=== PATIENT | male | born 1940 | race Caucasian/White ===

== ENCOUNTER 2018-01-22 07:45 | Day surgery (SDC) | payer MEDICARE, BC ==
[2018-01-17 16:25] VITALS: BMI 24.1
[~2018-01-22 07:45] MED LIST: DEXAMETHASONE SOD PHOSPHATE 10 MG/ML 1 ML VIAL IV ONE; HEPARIN SODIUM,PORCINE 5,000 UNIT/ML 1 ML VIAL SQ ONE; ONDANSETRON 4 MG/2 ML VIAL IVP ONE; ceFAZolin IN SWFI 2 GM/20 ML SYRINGE IVP ONE
[2018-01-22 08:27] VITALS: TEMP 97.8
[2018-01-22] MEDS: LACTATED RINGERS 1,000 ML IV SCH ×2 (08:36→08:50)
[2018-01-22] MEDS ORDERED: LIDOCAINE 1% 20 ML VIAL (10MG/ML) FOR IV START INTRADERMA ONE ×2 (08:36→08:50)
[2018-01-22 08:40] LABS: Glucose,Whole Blood 118 mg/dL (75-99)
--- NOTE | 2018-01-22 09:14 | P.GSHP ---
History of Present Illness H&P Date: 01/22/18 Chief Complaint: Right inguinal hernia This is a 77-year-old male who presents today for laparoscopic robotic-assisted repair of right inguinal hernia. Patient points of pain in the mass in his right groin. He was seen in the office and found have a reducible right inguinal hernia. 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, cataracts noman., surgery for sleep apnea, middle finger rt hand amputation, baby finger reattached Past Anesthesia/Blood Transfusion Reactions: No Reported Reaction Past Psychological History: No Psychological Hx Reported Smoking Status: Former smoker Past Alcohol Use History: Rare Additional Past Alcohol Use History / Comment(s): quit 1969 smoked 12 years < 1ppd switched to pipe Past Drug Use History: None Reported - Past Family History Father Family Medical History: Cancer Additional Family Medical History / Comment(s): prostate and colon cancer at age 50 Sister(s) Family Medical History: Cancer Additional Family Medical History / Comment(s): parkinsons Medications and Allergies Home Medications Medication Instructions Recorded Confirmed Type Aspirin [Adult Low Dose Aspirin EC] 81 mg PO DAILY 01/17/18 01/17/18 History Atorvastatin [Lipitor] 40 mg PO WE 01/17/18 01/22/18 History Cholecalciferol [Vitamin D3] 2,000 unit PO DAILY 01/17/18 01/17/18 History Fluticasone/Vilanterol [Breo 1 inhalation PO Q24HR PRN 01/17/18 01/22/18 History Ellipta 100-25 Mcg Inhaler] Levothyroxine Sodium 88 mcg PO DAILY 01/17/18 01/17/18 History Metoprolol Tartrate [Lopressor] 25 mg PO DAILY 01/17/18 01/17/18 History Omeprazole 20 mg PO DAILY 01/17/18 01/17/18 History Potassium Chloride [K-Tab ER] 10 meq PO DAILY 01/17/18 01/22/18 History Terazosin HCl 5 mg PO DAILY 01/17/18 01/17/18 History metFORMIN HCL [Glucophage] 500 mg PO DAILY PRN 01/17/18 01/17/18 History Allergies Allergy/AdvReac Type Severity Reaction Status Date / Time No Known Allergies Allergy Verified 01/22/18 08:42 Surgical - Exam Vital Signs Temp Pulse Resp BP Pulse Ox 97.8 F 57 L 18 133/61 98 01/22/18 08:26 01/22/18 08:26 01/22/18 08:26 01/22/18 08:26 01/22/18 08:26 - General well developed, no distress - Eyes PERRL - ENT normal pinna - Neck no masses - Respiratory normal expansion - Cardiovascular Rhythm: regular - Abdomen Abdomen: soft, non tender Results - Labs Abnormal Lab Results - Last 24 Hours (Table) 01/22/18 Range/Units 08:34 POC Glucose (mg/dL) 118 H (75-99) mg/dL Assessment and Plan Assessment: Right inguinal hernia. We'll perform laparoscopic robotic-assisted repair.
[2018-01-22] MEDS ORDERED: LIDOCAINE 1% INJ 10MG/ML (20 ML MDV) ONE (09:34)
[2018-01-22] MEDS ORDERED: MIDAZOLAM 2 MG/2 ML VIAL ONE (09:34)
[2018-01-22] MEDS ORDERED: NEOSTIGMINE 1 MG/ML 10 ML VIAL ONE (09:34)
[2018-01-22] MEDS ORDERED: GLYCOPYRROLATE 0.2 MG/ML 2 ML VIAL ONE (09:34)
[2018-01-22] MEDS ORDERED: VECURONIUM 10 MG VIAL IV ONE (09:34)
[2018-01-22] MEDS ORDERED: ePHEDrine SULFATE/0.9% NACL/PF 50 MG/5 ML SYRINGE IV ONE (09:34)
[2018-01-22] MEDS ORDERED: PROPOFOL 10 MG/ML 20 ML VIAL IV ONE (09:34)
[2018-01-22] MEDS ORDERED: fentaNYL (PF) 50 MCG/ML 2 ML AMP ONE (09:34)
[2018-01-22] MEDS ORDERED: SUCCINYLCHOLINE CHLORIDE 100 MG/5 ML SYR IV ONE (09:34)
[2018-01-22] MEDS ORDERED: BUPIVACAINE (PF) 0.25% 30 ML VIAL SQ ONE (10:10)
[2018-01-22 11:12] LABS: Glucose,Whole Blood 149 mg/dL (75-99)
--- NOTE | 2018-01-22 11:12 | P.OP ---
Date of Procedure: 01/22/18 Preoperative Diagnosis: Right inguinal hernia Postoperative Diagnosis: Right inguinal hernia Cord lipoma Procedure(s) Performed: Laparoscopic robotic-assisted repair of right inguinal hernia Excision of right cord lipoma Anesthesia: BRENDA Surgeon: Stevenson Mcwilliams Estimated Blood Loss (ml): 5 Pathology: other (Cord lipoma) Condition: stable Disposition: PACU Description of Procedure: The patient was placed on the operating table in the supine position. The patient received general anesthesia. The patient's abdomen was prepped and draped in usual sterile fashion. The skin was anesthetized 1% local Xylocaine at the incision sites. Using an 11 blade a skin incision was made at the umbilicus. The fascia was grasped with a Zachery and then the peritoneal cavity was entered with the Veress needle. Position of the Veress needle was confirmed with a positive drop test. After adequate insufflation a 5 mm trocar was placed into the peritoneal cavity. The Laparoscope was placed the peritoneal cavity. And a robotic 8 mm trocar was placed in the right lateral position and then another 8 mm robotic trochars placed in the left lateral position. The original 5 mm trocar was exchanged for a 12 mm trocar. The patient was placed in reverse Trendelenburg and then the patient was docked to the robot. Next the peritoneum over top of the hernia was incised and then using blunt and sharp dissection and electrocautery the hernia sac was dissected free from the floor of the inguinal canal. The hernia sac was completely reduced into the peritoneal cavity. The lipoma was dissected free from the cord. And then using the Pro admissions director mesh the hernia was repaired. The peritoneum was then sutured with 2-0V lock suture. The patient was then undocked the robot. The needle was withdrawn from the peritoneal cavity. The cord lipoma was brought out and sent to pathology. The umbilical trocar site was closed with 0 Ethibond suture. The skin was closed interrupted 3-0 Monocryl suture. Dermabond dressing was applied. Patient was sent to recovery in stable condition.
[2018-01-22] MEDS: MORPHINE SULFATE 4 MG/ML SYRINGE IV PRN ×3 (11:19→11:52)
[2018-01-22 12:11] VITALS: RESP 18
[2018-01-22] MEDS ORDERED: HYDROcodone/APAP 7.5-325MG 1 EACH TAB PO ONE (12:24)
[2018-01-22] MEDS ORDERED: LACTATED RINGERS 1,000 ML IV ONE ×2 (13:19→15:55)
[2018-01-22 14:01] VITALS: BP 172/77; PULSE 56
== END 2018-01-22 17:00 | disposition home or self-care (01) ==
LOC: OR 07:45
PROVIDERS: ATTEND Surgery
DX: K40.90 Unilateral inguinal hernia, without obstruction or gangrene, not specified as recurrent (principal); D17.6 Benign lipomatous neoplasm of spermatic cord; J45.909 Unspecified asthma, uncomplicated; E11.9 Type 2 diabetes mellitus without complications; K21.9 Gastro-esophageal reflux disease without esophagitis; E78.5 Hyperlipidemia, unspecified; I10 Essential (primary) hypertension; N42.9 Disorder of prostate, unspecified; I25.10 Atherosclerotic heart disease of native coronary artery without angina pectoris; Z85.820 Personal history of malignant melanoma of skin; Z95.1 Presence of aortocoronary bypass graft; Z95.3 Presence of xenogenic heart valve; Z79.84 Long term (current) use of oral hypoglycemic drugs; Z79.82 Long term (current) use of aspirin; Z79.890 Hormone replacement therapy; Z79.899 Other long term (current) drug therapy; Z79.51 Long term (current) use of inhaled steroids; Z87.891 Personal history of nicotine dependence
CPT/HCPCS: 88304; 49650; C1781; J2250; J2270; J1644; J1100; J2710; J2405; J2001; J3010; J0330; J2704; J0690

== ENCOUNTER 2018-02-05 06:53 | Day surgery (SDC) | payer MEDICARE, BC ==
[2018-01-30 14:16] VITALS: BMI 23.7
[~2018-02-05 06:53] MED LIST changes: -DEXAMETHASONE SOD PHOSPHATE 10 MG/ML 1 ML VIAL IV ONE; -HEPARIN SODIUM,PORCINE 5,000 UNIT/ML 1 ML VIAL SQ ONE; +LACTATED RINGERS 1,000 ML IV SCH; -ONDANSETRON 4 MG/2 ML VIAL IVP ONE; -ceFAZolin IN SWFI 2 GM/20 ML SYRINGE IVP ONE
[2018-02-05 07:34] VITALS: TEMP 97.6
[2018-02-05] MEDS ORDERED: LIDOCAINE 1% 20 ML VIAL (10MG/ML) FOR IV START INTRADERMA ONE (07:36)
[2018-02-05] MEDS ORDERED: PROPOFOL 10 MG/ML 20 ML VIAL IV ONE (07:41)
[2018-02-05] MEDS ORDERED: LIDOCAINE 1% INJ 10MG/ML (20 ML MDV) ONE (07:41)
[2018-02-05 07:49] LABS: Glucose,Whole Blood 98 mg/dL (75-99)
--- NOTE | 2018-02-05 07:51 | P.GSHP ---
History of Present Illness H&P Date: 02/05/18 Chief Complaint: Screening colonoscopy This a 77-year-old male who presents today for screening colonoscopy. 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, cataracts noman., surgery for sleep apnea, middle finger rt hand amputation, baby finger reattached Past Anesthesia/Blood Transfusion Reactions: Previous Problems w/ Anesthesia Additional Past Anesthesia/Blood Transfusion Reaction / Comment(s): HAD DIFFICULTY VOIDING POST OP, STATES "I HAVE A SHY BLADDER" WAS ABLE TO VOID SOON HE GOT HOME Past Psychological History: No Psychological Hx Reported Smoking Status: Former smoker Past Alcohol Use History: Rare Additional Past Alcohol Use History / Comment(s): quit 1969 smoked 12 years < 1ppd switched to pipe Past Drug Use History: None Reported - Past Family History Father Family Medical History: Cancer Additional Family Medical History / Comment(s): prostate and colon cancer at age 50 Sister(s) Family Medical History: Cancer Additional Family Medical History / Comment(s): parkinsons Medications and Allergies Home Medications Medication Instructions Recorded Confirmed Type Aspirin [Adult Low Dose Aspirin EC] 81 mg PO DAILY 01/17/18 02/05/18 History Atorvastatin [Lipitor] 40 mg PO WE 01/17/18 02/05/18 History Cholecalciferol [Vitamin D3] 2,000 unit PO DAILY 01/17/18 02/05/18 History Fluticasone/Vilanterol [Breo 1 inhalation PO Q24HR PRN 01/17/18 02/05/18 History Ellipta 100-25 Mcg Inhaler] Levothyroxine Sodium 88 mcg PO DAILY 01/17/18 02/05/18 History Metoprolol Tartrate [Lopressor] 25 mg PO DAILY 01/17/18 02/05/18 History Omeprazole 20 mg PO DAILY 01/17/18 02/05/18 History Potassium Chloride [K-Tab ER] 10 meq PO DAILY 01/17/18 02/05/18 History Terazosin HCl 5 mg PO DAILY 01/17/18 02/05/18 History metFORMIN HCL [Glucophage] 500 mg PO DAILY PRN 01/17/18 02/05/18 History Docusate [Colace] 100 mg PO BID #20 capsule 01/22/18 02/05/18 Rx HYDROcodone/APAP 7.5-325MG [Masury 1 each PO Q4H PRN #30 tab 01/22/18 02/05/18 Rx 7.5] Acetaminophen Tab [Tylenol Tab] 325 mg PO Q6H PRN 01/30/18 02/05/18 History Allergies Allergy/AdvReac Type Severity Reaction Status Date / Time No Known Allergies Allergy Verified 02/05/18 07:37 Surgical - Exam Vital Signs Temp Pulse Resp BP Pulse Ox 97.6 F 56 L 16 135/65 99 02/05/18 07:27 02/05/18 07:27 02/05/18 07:27 02/05/18 07:27 02/05/18 07:27 - General well developed, no distress - Eyes PERRL - ENT normal pinna - Neck no masses - Respiratory normal expansion - Cardiovascular Rhythm: regular - Abdomen Abdomen: soft, non tender Assessment and Plan Assessment: We'll perform screening colonoscopy.
--- NOTE | 2018-02-05 08:10 | P.OP ---
Date of Procedure: 02/05/18 Preoperative Diagnosis: Screening colonoscopy Postoperative Diagnosis: Normal colonoscopy Procedure(s) Performed: Colonoscopy Anesthesia: MAC Surgeon: Stevenson Mcwilliams Pathology: none sent Condition: stable Disposition: PACU Description of Procedure: PROCEDURE: The patient was placed on the endoscopy table in the lateral position. Digital rectal examination was performed which revealed no abnormalities. The prostate was symmetrical without nodules. Flexible colonoscope was then placed in the patient's anus and passed throughout the entire colon. The ileocecal valve was visualized. The cecum, ascending, transverse, descending and sigmoid colon were normal. The rectum was normal as well. There were no masses, polyps or diverticula noted in the entire colon. SUMMARY OF FINDINGS: Normal colonoscopy.
[2018-02-05 08:43] VITALS: BP 125/72; PULSE 64; RESP 18
== END 2018-02-05 08:44 | disposition home or self-care (01) ==
LOC: ORWHC2ENDO 06:53
PROVIDERS: ATTEND Surgery
DX: Z12.11 Encounter for screening for malignant neoplasm of colon (principal); J45.909 Unspecified asthma, uncomplicated; K21.9 Gastro-esophageal reflux disease without esophagitis; I10 Essential (primary) hypertension; E11.9 Type 2 diabetes mellitus without complications; E07.9 Disorder of thyroid, unspecified; I25.10 Atherosclerotic heart disease of native coronary artery without angina pectoris; E78.5 Hyperlipidemia, unspecified; Z87.891 Personal history of nicotine dependence; Z85.820 Personal history of malignant melanoma of skin; Z95.1 Presence of aortocoronary bypass graft; Z95.2 Presence of prosthetic heart valve; Z79.82 Long term (current) use of aspirin; Z80.42 Family history of malignant neoplasm of prostate; Z80.0 Family history of malignant neoplasm of digestive organs; Z89.021 Acquired absence of right finger(s); Z95.4 Presence of other heart-valve replacement; Z79.899 Other long term (current) drug therapy; Z86.010 Personal history of colon polyps; Z79.84 Long term (current) use of oral hypoglycemic drugs
CPT/HCPCS: J2001; J2704; G0105